=== PATIENT | female | born 2000 | race Caucasian/White ===

== ENCOUNTER 2019-05-21 15:13 | Emergency (ER) | payer OTHER ==
--- OUTSIDE RECORDS SUMMARY | 2019-05-21 18:23 | XMS REPORT ---
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 depressed mood Relevant diagnostic tests/laboratory data Narrative No Information Procedures Procedure Code CodeSystem Target Date of Status Service Device Device Device Name Site Procedure Delivery Code Name UID Location SNOMED-CT () 2019-04-[address], [id number] SNOMED-CT () 2019-04-[address], [id number] SNOMED-CT () 2019-04-[address], [id number] Encounters/Encounter Diagnoses Encounter Encounter Diagnosis Diagnosis Diagnosis Date of Service Name Code Code Name CodeSystem Diagnosis Delivery Location Non-Billable [id number] Adjustment SNOMED-CT 2019-05-01 Behavioral disorder with Health mixed anxiety Clinic , , and depressed , mood Vital Signs No Information Social History Element Description Description Start End Code CodeSystem AdditionalInfo Date Date SexAssignedAtBirth Female F AdministrativeGender 03-15 Hospital Discharge Instructions Reason For Referral Medical Equipment FDA Assessments
[2019-05-21 18:32] VITALS: BP 122/76
--- NOTE | 2019-05-21 18:37 | UC ---
Skin Complaint HPI - HPI Summary HPI Summary: 19-year-old female presenting with for rash on abdomen and lower back 6 days. Patient states it began on the right side of her abdomen and has gradually spread. Also notes a lesion on her left calf. Notes minimal itching. Denies pain. Denies drainage from the rash. Denies any new products or detergents. Denies new medications. Does note that she has been drinking a new yogurt with probiotics for the last week or 2. Denies fever and chills. Denies recent URI symptoms or other illness. Denies daily medications. Patient does admit that she has "very sensitive skin." Notes a history of alopecia. Denies anything like this in the past. Patient unsure of what she was doing when the rash began. - History of Current Complaint Chief Complaint: UCRash Stated Complaint: RASH Hx Obtained From: Patient Hx Last Menstrual Period: End of 2014 Pain Intensity: 0 - Allergy/Home Medications Allergies/Adverse Reactions: Allergies Allergy/AdvReac Type Severity Reaction Status Date / Time MS Chocolate [Chocolate] Allergy Stomach Verified 05/21/19 18:32 Cramps pudding Allergy Stomach Uncoded 05/21/19 18:32 Cramps Home Medications: Home Medications predniSONE [Prednisone 20 MG TAB] 40 mg PO DAILY #10 tablet 05/21/19 [Rx] PMH/Surg Hx/FS Hx/Imm Hx Previously Healthy: Yes - Surgical History Surgical History: None - Family History Known Family History: Positive: Non-Contributory - Social History Alcohol Use: Weekly Substance Use Type: None Smoking Status (MU): Never Smoked Tobacco - Immunization History Vaccination Up to Date: No Review of Systems All Other Systems Reviewed And Are Negative: Yes Constitutional: Positive: Negative. Negative: Fever, Chills, Fatigue Skin: Positive: Other - rash on abdomen, lower back, left calf Respiratory: Positive: Negative Cardiovascular: Positive: Negative Gastrointestinal: Positive: Negative Musculoskeletal: Positive: Negative. Negative: Arthralgia, Myalgia Neurological/Mental Status: Positive: Negative Physical Exam Triage Information Reviewed: Yes Appearance: Well-Appearing, No Pain Distress, Well-Nourished Vital Signs: Initial Vital Signs Temp 99.7 F 05/21/19 18:28 Pulse 67 05/21/19 18:28 Resp 16 05/21/19 18:28 BP 122/76 05/21/19 18:28 Pulse Ox 100 05/21/19 18:28 Vital Signs Reviewed: Yes Eyes: Positive: Conjunctiva Clear ENT: Positive: Hearing grossly normal, Pharynx normal, TMs normal, Uvula midline. Negative: Pharyngeal erythema Neck exam: Normal Neck: Positive: Supple, Nontender, No Lymphadenopathy Respiratory: Positive: No respiratory distress, No accessory muscle use Cardiovascular Exam: Other - skin reflects adequate perfusion Neurological: Positive: Alert Psychological: Positive: Age Appropriate Behavior Skin: Positive: Rashes - Diffuse pink colored macular rash with 0.5-1.5 cm lesions noted on abdomen and lower back. One lesion noted on lateral left calf. Nonpruritic, nondraining, no red streaking, blanchable. Course/Dx - Course Course Of Treatment: Discussed unclear etiology of rash. Instructed to discontinue use of new yogurt she has been consuming. I provided patient with short course of prednisone after educating her on side effects. Patient states she has taken prednisone past without issue. I informed her that the rash will likely spontaneously resolve with prednisone or with time. Instructed to follow up with PCP or dermatology if symptoms do not improve within 2 weeks. Instructed to go to ED with any new or worsening symptoms. Patient voiced understanding and agreed with treatment plan. - Differential Diagnoses - Skin Complaint Differential Diagnoses: Drug Rash, Viral Exanthem, Other - Pityriasis rosea - Diagnoses Provider Diagnosis: Rash and nonspecific skin eruption Discharge ED - Sign-Out/Discharge Documenting (check all that apply): Patient Departure All imaging exams completed and their final reports reviewed: No Studies - Discharge Plan Condition: Stable Disposition: HOME Prescriptions: predniSONE [Prednisone 20 MG TAB] 40 mg PO DAILY #10 tablet Patient Education Materials: Prednisone (By mouth), Acute Rash (ED) Referrals: Дмитрий Mcgovern DO [Primary Care Provider] - If Needed Jax Martinez MD [Medical Doctor] - If Needed Additional Instructions: As discussed, it is unclear what is causing your rash today. Take prednisone as prescribed to help symptoms. Follow up with your primary care provider or the dermatology referral listed below if symptoms worsen or do not improve within 1-2 weeks. - Billing Disposition and Condition Condition: STABLE Disposition: Home
== END 2019-05-21 19:30 | disposition home or self-care (01) ==
LOC: UCEAST 15:13
DX: R21 Rash and other nonspecific skin eruption (principal); Z91.018 Allergy to other foods
CPT/HCPCS: 99212; G0463

== ENCOUNTER 2021-12-01 23:11 | Inpatient (IN) ==
[2021-12-02] MEDS ORDERED: Al Hydrox/Mg Hydrox/Simet LIQ 30 ML UDC PO PRN (06:13)
[2021-12-02 08:49] LABS: ABS Eosinophils 0.3 10^3/ul (0-0.6); ABS Monocytes 0.7 10^3/ul (0-0.8); ABS Neutrophils 4.9 10^3/ul (1.5-7.7); Eosinophil % 3.8 %; Hematocrit 41 % (35-47); Hemoglobin 13.9 g/dL (12.0-16.0); Lymphocyte % 33.3 %; Mean Corpuscular HGB Conc 34 g/dL (31-36); Mean Corpuscular Hemoglobin 29 pg (27-31); Mean Corpuscular Volume 87 fL (80-97); Mean Platelet Volume 8.1 fL (7.4-10.4); Nucleated Red Blood Cells % 0.1; Platelet Count 300 10^3/uL (150-450); Red Blood Count 4.76 10^6 /uL (3.70-4.87); Red Cell Distribution Width 12 % (10-15); White Blood Count 8.9 10^3/uL (3.5-10.8)
[2021-12-02 08:54] LABS: Urine Appearance Clear; Urine Bilirubin Negative (Negative); Urine Blood Negative (Negative); Urine Color Yellow; Urine Glucose Negative (Negative); Urine Ketones 1+ (Negative); Urine Nitrite Negative (Negative); Urine Protein Negative (Negative); Urine Specific Gravity 1.015 (1.002-1.030); Urine Urobilinogen Negative (Negative)
[2021-12-02 09:10] LABS: Urine Benzodiazepine Screen None Detected (None Detect); Urine Cannabinoids Screen Presumptive Positive (None Detect); Urine Opiates Screen None Detected (None Detect)
[2021-12-02 09:15] LABS: ALT 55 U/L (7-52); AST 34 U/L (13-39); Acetaminophen < 15 mcg/mL; Albumin 4.1 g/dL (3.2-5.2); Albumin/Globulin Ratio 1.3 (1-3); Alcohol, S < 13 mg/dL (<13); Alkaline Phosphatase 77 U/L (35-149); Anion Gap 9 mmol/L (2-11); Blood Urea Nitrogen 8 mg/dL (6-24); CO2 Carbon Dioxide 26 mmol/L (22-32); Calcium 9.5 mg/dL (8.6-10.3); Chloride 103 mmol/L (101-111); Globulin 3.1 g/dL (2-4); Glucose 87 mg/dL (70-100); Potassium 3.5 mmol/L (3.5-5.0); Salicylate < 2.50 mg/dL (<30); Sodium 138 mmol/L (135-145); Total Protein 7.2 g/dL (6.4-8.9); eGFR CKD-EPI 120.4 (>60)
[2021-12-02 09:21] LABS: HCG Pregnancy < 0.60 mIU/mL
[2021-12-02 09:28] LABS: TSH Ultra Thyroid Stim Horm 4.61 mcIU/mL (0.34-5.60)
[2021-12-02] MEDS: Vitamin THERAPEUTIC TAB PO SCH (13:45)
[2021-12-03] MEDS: Vitamin THERAPEUTIC TAB PO SCH (08:09)
[2021-12-04] MEDS: Vitamin THERAPEUTIC TAB PO SCH (09:54)
[2021-12-04 19:03] VITALS: BP 117/69
[2021-12-05] MEDS: Vitamin THERAPEUTIC TAB PO SCH (10:13)
== END 2021-12-05 16:31 | disposition home or self-care (01) | DRG 754 ==
LOC: ED 23:11 → BSU 23:11 → OBSVTOIN 12-02 11:48 → BSU 12-02 13:52
PROVIDERS: ADMIT Student in an Organized Health Care Education/Training Program; ATTEND Student in an Organized Health Care Education/Training Program